=== PATIENT | male | born 1980 | race African-American/Black ===

== ENCOUNTER 2022-12-15 17:27 | Emergency (ER) | payer MEDICAID, OTHER ==
[~2022-12-15] VITALS: Ht 180.3 cm; Wt 97.0 kg
[2022-12-15] MEDS ORDERED: FLUORESCEIN SOD OPTH TEST STRIP RIGHTEYE ONE (18:30)
[2022-12-15] MEDS ORDERED: TETRACAINE HCL 0.5% OPTH(EYE) SOLN 4ML RIGHTEYE ONE (18:30)
[2022-12-15 18:37] VITALS: BP 152/92; PULSE 81; RESP 18; TEMP 98.4; O2SAT 99
[2022-12-15] MEDS ORDERED: ERY05OO OP (19:27)
[2022-12-15] MEDS ORDERED: SODIUM CHLORIDE 0.9% 1,000 ML IV ONE (19:30)
== END 2022-12-15 20:24 | disposition home or self-care (01) ==
LOC: ER 17:27
DX: T15.91XA Foreign body on external eye, part unspecified, right eye, initial encounter (principal); W22.8XXA Striking against or struck by other objects, initial encounter; Y93.89 Activity, other specified; Y92.89 Other specified places as the place of occurrence of the external cause; Y99.8 Other external cause status